=== PATIENT | male | born 1990 | race African-American/Black ===

== ENCOUNTER 2023-11-15 09:43 | Emergency (ER) | payer OTHER ==
[~2023-11-15] VITALS: Ht 233.7 cm; Wt 97.5 kg
--- NOTE | 2023-11-15 10:00 | NUR ---
RECEIVED PT 32 YRS MALE WALING IN TO ED C/O FLUI LICK SYMTOMY FOR 4 DAYS NO SOB OR DISTRESS
--- NOTE | 2023-11-15 10:37 | NUR ---
Patient discharged to home in stable condition. Written and verbal after care instructions given. Patient verbalizes understanding of instruction.
[2023-11-15 10:57] VITALS: BP 136/76; TEMP 98.8; O2SAT 100
== END 2023-11-15 10:58 | disposition home or self-care (01) ==
LOC: ER 09:43
DX: J06.9 Acute upper respiratory infection, unspecified (principal)